=== PATIENT | female | born 1970 | race Caucasian/White ===

== ENCOUNTER 2017-07-26 17:33 | Emergency (ER) | payer OTHER ==
[2017-07-26 18:02] VITALS: BP 143/71
--- NOTE | 2017-07-26 18:22 | ED ---
Throat Pain/Nasal Congestion - HPI Summary HPI Summary: Patient here with right ear fullness, itchiness and pain for the past couple of days. This is radiating down into her neck area. She denies change in hearing , otorrhea, fever, chills, sneezing, coughing, rhinorrhea, chest pain, headache , dizziness. She has a history of in her "ear issues" leading her to myringotomy 3 as an adult. Recent pertinent history reveals she has been going to the gym and using earbuds - may be intervening symptoms. She applied olive oil to her bilateral EACs tonight in an effort to gain some relief. - History of Current Complaint Chief Complaint: UCEar Time Seen by Provider: 07/26/17 18:09 Hx Obtained From: Patient - Allergies/Home Medications Allergies/Adverse Reactions: Allergies Allergy/AdvReac Type Severity Reaction Status Date / Time amoxicillin [From Augmentin] Allergy Diarrhea Verified 07/26/17 17:53 clavulanic acid Allergy Diarrhea Verified 07/26/17 17:53 [From Augmentin] Home Medications: Home Medications Acetaminophen [Acetaminophen Extra Strength] 500 mg PO ONCE 07/26/17 [History Confirmed 07/26/17] Ibuprofen TAB* [Motrin TAB* 600 MG] 600 mg PO Q4H PRN 07/26/17 [History Confirmed 07/26/17] PMH/Surg Hx/FS Hx/Imm Hx Previously Healthy: Yes Endocrine/Hematology History: Reports: Hx Thyroid Disease - Hypothyroid Denies: Hx Diabetes Cardiovascular History: Reports: Hx Congestive Heart Failure Denies: Hx Hypertension Respiratory History: Denies: Hx Asthma, Hx Chronic Obstructive Pulmonary Disease (COPD) GI History: Denies: Hx Ulcer EENT History: Reports: Other - ear issues requiring myringotomies - Cancer History Hx Chemotherapy: No Hx Radiation Therapy: No - Surgical History Surgery Procedure, Year, and Place: C section x2 1999, 2002,Tubal ligation/ ABALSION 2008, Lasik 2002, Sinus surgery 2007, hysterectomy 2010 Infectious Disease History: No Infectious Disease History: Denies: Hx Hepatitis, Hx Human Immunodeficiency Virus (HIV), Traveled Outside the [place] in Last 30 Days - Social History Alcohol Use: None Hx Substance Use: No Substance Use Type: Reports: None Hx Tobacco Use: No Smoking Status (MU): Never Smoked Tobacco Review of Systems Constitutional: Negative Eyes: Negative Positive: Ear Ache Cardiovascular: Negative Respiratory: Negative Gastrointestinal: Negative Positive: no symptoms reported Musculoskeletal: Negative Skin: Negative Neurological: Negative Psychological: Normal All Other Systems Reviewed And Are Negative: Yes Physical Exam Triage Information Reviewed: Yes Vital Signs On Initial Exam: Initial Vitals Temp Pulse Resp BP Pulse Ox 98.3 F 76 16 143/71 98 07/26/17 17:55 07/26/17 17:55 07/26/17 17:55 07/26/17 17:55 07/26/17 17:55 Vital Signs Reviewed: Yes Appearance: Positive: Well-Appearing, No Pain Distress, Obese Skin: Positive: Warm, Skin Color Reflects Adequate Perfusion, Dry Head/Face: Positive: Normal Head/Face Inspection Eyes: Positive: Normal, EOMI, Conjunctiva Clear. Negative: Conjunctiva Inflammed, Discharge ENT: Positive: Hearing grossly normal, Pharynx normal, TMs normal - Rt EAC w/ erythema, edema (Lt is same to less degree). Negative: Nasal congestion, Nasal drainage Neck: Positive: Supple, Nontender, No Lymphadenopathy Respiratory/Lung Sounds: Positive: Clear to Auscultation, Breath Sounds Present Cardiovascular: Positive: Normal, RRR Musculoskeletal: Positive: Normal, Strength/ROM Intact Neurological: Positive: Normal, Sensory/Motor Intact, Alert, Oriented to Person Place, Time, CN Intact II-III Psychiatric: Positive: Anxious Diagnostics - Vital Signs Vital Signs Temp Pulse Resp BP Pulse Ox 07/26/17 17:55 98.3 F 76 16 143/71 98 - Laboratory Lab Statement: Any lab studies that have been ordered have been reviewed, and results considered in the medical decision making process. EENT Course/Dx - Diagnoses Provider Diagnoses: Otitis externa Discharge - Sign-Out/Discharge Documenting (check all that apply): Discharge/Admit/Transfer - Discharge Plan Condition: Stable Disposition: HOME Prescriptions: Neomyc/Polym/HC 1% OTIC SUSP* [Cortisporin Otic Susp 1%*] 4 drop BOTH EARS TID # 1 btl Patient Education Materials: Otitis Externa (ED) Referrals: Haim Vivar MD [Primary Care Provider] - Additional Instructions: Cortisporin ear drop - 4 drops into both ears 3 x day for 10 days Avoid devices that trap moisture in your ear (ie. ear buds, holding phone up to ear for long periods, etc) and if sweating into ears/excessive moisture from swimming, etc try Swimmer's ear drops to prevent issues once it resolves (DO NOT USE NOW) *If no improvement, follow-up with PCP - Billing Disposition and Condition Condition: STABLE Disposition: HOME
== END 2017-07-26 18:30 | disposition home or self-care (01) ==
LOC: UCEAST 17:33
DX: H60.91 Unspecified otitis externa, right ear (principal); E03.9 Hypothyroidism, unspecified; I50.9 Heart failure, unspecified; Z88.1 Allergy status to other antibiotic agents; Z88.0 Allergy status to penicillin
CPT/HCPCS: 99212; G0463

== ENCOUNTER 2018-12-23 18:27 | Emergency (ER) | payer OTHER ==
[2018-12-23 18:35] VITALS: BP 147/72
--- NOTE | 2018-12-23 19:27 | UC ---
Dental HPI - HPI Summary HPI Summary: 48 yo woman with upper dental pain x 2 weeks, with progression of pain in the right maixllary area and discomfort around the right eye. She has no fever, diplopia, facial swelling. Pain radiates to the right ear without associated hearing loss. Does twice annual cleanings, last xrays were about a year ago. - History of Current Complaint Chief Complaint: UCDentalProblem Stated Complaint: RESP COMPLAINT Time Seen by Provider: 12/23/18 19:12 Hx Obtained From: Patient Hx Last Menstrual Period: Uterine ablation Onset/Duration: Gradual Onset, Lasting Weeks - 2 Severity: Moderate Pain Intensity: 7 Aggravating Factor(s): Chewing Alleviating Factor(s): OTC Meds - Allergies/Home Medications Allergies/Adverse Reactions: Allergies Allergy/AdvReac Type Severity Reaction Status Date / Time amoxicillin [From Augmentin] Allergy Diarrhea Verified 12/23/18 18:35 clavulanic acid Allergy Diarrhea Verified 12/23/18 18:35 [From Augmentin] PMH/Surg Hx/FS Hx/Imm Hx - Additional Past Medical History Additional PMH: possible C. diff in the past when she took augmentin; no hx of penicillin allergy. Previously Healthy: Yes - Surgical History Surgical History: Yes Surgery Procedure, Year, and Place: C section x2 1999, 2002,Tubal ligation/ ABLASION 2008, Lasik 2002, Sinus surgery 2007, hysterectomy 2010, APPENDECTOMY. 2 - D & Cs - Family History Known Family History: Positive: Non-Contributory - Social History Occupation: Employed Full-time Lives: With Family Alcohol Use: None Substance Use Type: None Smoking Status (MU): Never Smoked Tobacco Review of Systems All Other Systems Reviewed And Are Negative: Yes Constitutional: Negative: Fever, Chills Skin: Positive: Negative Eyes: Positive: Negative ENT: Positive: Ear Ache. Negative: Sore Throat, Nasal Discharge, Sinus Congestion Respiratory: Positive: Negative Cardiovascular: Positive: Negative Gastrointestinal: Positive: Negative Genitourinary: Positive: Negative Motor: Positive: Negative Neurovascular: Positive: Negative Musculoskeletal: Positive: Negative Neurological: Positive: Negative. Negative: Headache Psychological: Positive: Negative Is Patient Immunocompromised?: No Physical Exam Triage Information Reviewed: Yes Appearance: Well-Appearing, Pain Distress - mild to moderate., Obese Vital Signs: Initial Vital Signs Temp 98.1 F 10/31/19 18:31 Pulse 72 12/23/18 18:31 Resp 16 12/23/18 18:31 BP 147/72 12/23/18 18:31 Pulse Ox 100 12/23/18 18:31 Eye Exam: Other - CONRAD, normal eom Eyes: Positive: Conjunctiva Clear ENT: Positive: Pharynx normal, TMs normal, Uvula midline, Other - bilateral erythematous, dry flaking skin external ear canals No facial swelling or asymmetry Dental: Positive: Percussion Tenderness @ - 4. Negative: Gross Decay/Caries @, Dental Fracture @ Neck: Positive: Supple, Nontender, No Lymphadenopathy Respiratory: Positive: Lungs clear, Normal breath sounds Cardiovascular: Positive: RRR, No Murmur Musculoskeletal Exam: Normal Neurological Exam: Normal Psychological Exam: Normal Skin Exam: Normal Images Dental: 1 - percussive tenderness Dental Complaint Course/Dx - Course Course Of Treatment: 2 weeks of dental pain consistent with dental infection. - Differential Dx/Diagnosis Differential Diagnosis/Dx: Dental Abscess, Dental Caries, Gingivitis Provider Diagnosis: Dental abscess Discharge ED - Sign-Out/Discharge Documenting (check all that apply): Patient Departure All imaging exams completed and their final reports reviewed: No Studies - Discharge Plan Condition: Good Disposition: HOME Patient Education Materials: Dental Abscess (ED) Referrals: Haim Vivar MD [Primary Care Provider] - Additional Instructions: You have been prescribed penicillin for dental infection. Please take the full course of treatment, and follow up with your dentist next week as arranged. Continue ibuprofen for relief of pain. If you develop fever, double vision, or have increasing facial swelling, please go directly to the emergency room for assessment. - Billing Disposition and Condition Condition: GOOD Disposition: Home
== END 2018-12-23 19:43 | disposition home or self-care (01) ==
LOC: UCEAST 18:27
DX: K04.7 Periapical abscess without sinus (principal); E66.9 Obesity, unspecified; Z88.0 Allergy status to penicillin
CPT/HCPCS: 99212; G0463